=== PATIENT | male | born 1985 | race Caucasian/White ===

== ENCOUNTER 2023-06-30 09:20 | Outpatient (CLI) | payer BC ==
--- NOTE | 2023-06-30 11:44 | XRAY Report ---
PROCEDURE: Lumbar Spine 2-3V INDICATIONS: LUMBAGO WITH SCIATICA, LEFT SIDE TECHNIQUE: 3 views of the lumbar spine were acquired. COMPARISON: None. FINDINGS: Bones: 5 [id number] vertebrae are present. Slight levoconvex curvature of the lower lumbar spin e which may be positional. And mild disc height loss at L4-5 and L5-S1 with associated mild osseous n eural foraminal narrowing and facet arthropathy. No vertebral body compression fractures. No suspic ious bony lesions. Soft tissues: Overlying bowel gas pattern is normal. No suspicious soft tissue calcifications. IMPRESSION: 1.No acute osseous abnormality. 2.Mild degenerative changes at L4-5 and L5-S1 with associated osseous neural foraminal narrowing. Reviewed by: Sharonda Correia MD on 06/30/2023 11:43 AM PDT Approved by: Sharonda Correia MD on 06/30/2023 11:43 AM PDT Station ID: [id number]
== END 2023-06-30 09:21 | disposition home or self-care (01) ==
LOC: DI.N 09:20
PROVIDERS: ATTEND Physician Assistant Medical
DX: M47.816 Spondylosis without myelopathy or radiculopathy, lumbar region (principal); M47.817 Spondylosis without myelopathy or radiculopathy, lumbosacral region; M48.061 Spinal stenosis, lumbar region without neurogenic claudication; M48.07 Spinal stenosis, lumbosacral region

== ENCOUNTER 2023-07-05 22:27 | Emergency (ER) | payer BC ==
--- NOTE | 2023-07-06 00:07 | ED Physician Documentation ---
PD HPI BACK PAIN - Stated complaint Stated Complaint: BACK PX - Chief complaint Chief Complaint: Back Pain - History obtained from History obtained from: Patient - Additional information Additional information: HPI from patient. Patient c/o left lower back pain radiating down LLE. Patient says he had initial symptoms four months ago, sudden onset when pulling on heavy piece of luggage. The episode resolved but reoccurred approximately 3 weeks ago with another mild inciting event. The pain waxes and wanes, worse with movement. Denies numbness, weakness. Denies change in bowel/bladder continence. He has been seen in outpatient setting for this recently and rx includes flexeril and PO steroids. He did not have noticeable relief with methylprednisolone, but more recently was prescribed prednisone and this seemed to provide significant relief; unfortunately, he finished the prednisone 2 days ago and the pain has returned since last night. Patient also had outpatient plain-film lumbar xrays a few days ago, mild degenerative changes L4-L5, L5-S1 Review of Systems Constitutional: denies: Fever : denies: Incontinent Skin: denies: Rash Musculoskeletal: reports: Back pain Neurologic: denies: Focal weakness, Numbness PD PAST MEDICAL HISTORY - Past Medical History Respiratory: Asthma - Past Surgical History Past Surgical History: Yes Neuro: Craniotomy - Present Medications Home Medications: Ambulatory Orders Medication Instructions Recorded Confirmed Albuterol Sulfate [Proair 90 mcg IH Q4HR PRN 07/05/23 07/05/23 Respiclick] Fluoxetine HCl [Prozac] 20 mg PO DAILY 07/05/23 07/05/23 HYDROcod/ACETAM 5/325 [Alloway 5/325] 1 - 2 tablet PO Q6H PRN #14 tablet 07/06/23 predniSONE [Deltasone] 40 mg PO DAILY 4 Days #8 tablet 07/06/23 - Allergies Allergies/Adverse Reactions: Allergies Allergy/AdvReac Type Severity Reaction Status Date / Time No Known Drug Allergies Allergy Verified 07/05/23 22:37 - Social History Does the pt smoke?: No Smoking Status: Never smoker Does the pt drink ETOH?: Yes Does the pt have substance abuse?: No - Immunizations Immunizations are current?: Yes PD ED PE NORMAL - Vitals Vital signs reviewed: Yes - General General: Alert and oriented X 3, No acute distress, Well developed/nourished - Back Back: No CVA TTP, No spinal TTP - Derm Derm: No rash - Extremities Extremities: No edema - Neuro Neuro: No motor deficit (5/5 bilateral plantar/dorsiflexion), No sensory deficit (LTS intact), Other (2+/4 left patellar DTR without clonus) Results - Vitals Vitals: Oxygen O2 Source Room air PD Medical Decision Making - ED course Complexity details: considered differential, d/w patient ED course: Given 2 tab 5/325 hydrocodone/acetaminophen as well as 40mg PO prednisone, and rx provided for both of these medications (prednisone for QD x 4 days, thus total of five days with ED dose). advised to follow up with PCP; he is relatively new to area and is trying to establish with local PCP. Return precautions reviewed. Departure - Departure Disposition: 01 Home, Self Care Clinical Impression: Sciatica Qualifiers: Laterality: left Qualified Code(s): M54.32 - Sciatica, left side Condition: Good Instructions: ED Sciatica Follow-Up: Leidy Diamond MD [Primary Care Provider] - Prescriptions: predniSONE [Deltasone] 40 mg PO DAILY 4 Days #8 tablet HYDROcod/ACETAM 5/325 [Alloway 5/325] 1 - 2 tablet PO Q6H PRN #14 tablet PRN Reason: Pain Comments: I have electronically submitted prescriptions for prednisone (oral steroid) and Vicodin (opiate/narcotic pain medication) to the [facility] pharmacy in [place]. I am prescribing a short course of narcotic pain medication for you. These are potentially dangerous and addictive medications that should be used carefully. These medications may constipate you. Take an uvfg-wxs-tnkkfxh stool softener (docusate) twice daily with plenty of water while taking these medications. If you go 24 hours without a bowel movement, take [id number] miralax, per package instructions. Do not drink or drive while taking these medications. If you received narcotic or sedating medications while in the emergency department, do not drive for 24 hours. Store this medication in a safe, secure place and out of reach of children. It is a violation of federal law to give or sell this medication to another person or to use in a manner other than prescribed. The ED will not refill narcotic prescriptions, including prescriptions lost or stolen. To dispose of unwanted medications: 1. [facility] at [address] in [place] has a medication drop box. They accept prescription medications (in pill form) Monday through Monday 9:00 a.m. to 5:00 p.m. 2. [facility] accepts prescription medications (in pill form only) for disposal year round. Call for more information. 3. Contact the [facility] for the next [facility] sponsored prescription drug collection event. , [phone], or [phone]; Discharge Date/Time: 07/06/23 00:49
[2023-07-06] MEDS: predniSONE 20 MG TABLET PO STA (00:36)
[2023-07-06] MEDS: HYDROcod/ACETAM 5/325 MG TABLET PO STA (00:36)
[2023-07-06 00:57] VITALS: BP 158/114; O2SAT 99
== END 2023-07-06 00:49 | disposition home or self-care (01) ==
LOC: ED 22:27
DX: M54.32 Sciatica, left side (principal); J45.909 Unspecified asthma, uncomplicated
CPT/HCPCS: 99283; A9270; J7512

== ENCOUNTER 2023-10-23 18:46 | Outpatient (CLI) | payer BC ==
[2023-10-23 22:56] LABS: CHLAMYDIA TRACHOMATIS DNA NEGATIVE (NEGATIVE); NEISSERIA GONORRHOEAE DNA NEGATIVE (NEGATIVE); TRICHOMONAS VAGINALIS DNA NEGATIVE (NEGATIVE)
== END 2023-10-23 18:47 | disposition home or self-care (01) ==
LOC: LAB 18:46
DX: Z00.00 Encounter for general adult medical examination without abnormal findings (principal); Z72.51 High risk heterosexual behavior
CPT/HCPCS: 36415; 86592; 86695; 86696; 86735; 86762; 86765; 86787; 86803; 87389; 87491; 87591; 87661